=== PATIENT | male | born 1950 | race Caucasian/White ===

== ENCOUNTER 2022-03-05 06:55 | Outpatient (CLI) | payer MEDICARE, BC, SELFPAY | END 2022-03-05 06:56 | disposition home or self-care (01) | LOC: OP CLINIC 06:56 | PROVIDERS: PCP Family Medicine; Visit Provider Internal Medicine Gastroenterology | DX: Z12.11 Encounter for screening for malignant neoplasm of colon (principal); K63.5 Polyp of colon; Z86.010 Personal history of colon polyps | CPT/HCPCS: 45380; 45385; 88305; 99153; J2250; J3010 ==

== ENCOUNTER 2023-09-29 00:14 | Emergency (ER) | payer MEDICARE, BC, SELFPAY ==
[2023-09-29 00:24] VITALS: BP 122/82; PULSE 131; RESP 20; TEMP 36.5; BMI 29.7
--- NOTE | 2023-09-29 00:31 | XR_ITS ---
Final Report Patient: SAIMA QUINTERO Facility:?[facility] Patient ID:?[id number] Site Patient ID:?[id number]. Site :?[id number] Study:?XRay Chest AP PORTABLE-09/29/2023 12:58:58 AM Ordering Physician:Shanda Godfrey Final Report: INDICATION: Shortness of breath, recent pneumonectomy. TECHNIQUE: Chest 1 view. COMPARISON: 03/15/2021. FINDINGS: Interval opacification of essentially the entire right hemithorax with fluid, compatible with recent pneumonectomy changes. There is mild [id number] midline shift, likely secondary to ex vacuo phenomenon from volume loss. Right chest wall subcutaneous emphysema. Diffuse increased interstitial lung markings within the left lung. Evaluation of the right heart border is obscured by the fluid within the right hemithorax. The left cardiomediastinal silhouette is unremarkable. The osseous structures are unremarkable for age. IMPRESSION: 1. Near complete opacification of the right hemithorax with fluid and right chest wall subcutaneous emphysema, compatible with recent pneumonectomy postsurgical changes. 2. Diffuse increased interstitial lung markings within the left lung may represent pulmonary edema/volume overload, or an infectious/inflammatory process in the correct clinical setting. Dictated by Maynor Marie MD @ 09/29/2023 1:03:00 AM (Electronic Signature)
[2023-09-29 00:42] LABS: Basophils Absolute Auto 0.02 K/uL (0.00-0.30); Basophils Percent Auto 0.2 % (0.0-3.0); Eosinophils Absolute Auto 0.27 K/uL (0.00-0.50); Eosinophils Percent Auto 3.3 % (0.0-7.0); Hematocrit 35.2 % (37.0-53.0); Hemoglobin* 11.8 gm/dL (13.5-17.5); Immature Granulocytes Abs Auto 0.05 K/uL (0.00-0.30); Immature Granulocytes Pct Auto 0.6 %; Lymphocytes Percent Auto 19.1 % (20-44); Mean Corpuscular HGB Conc 34 gm/dL (32-36); Mean Corpuscular Hemoglobin 33 pg (26-34); Mean Corpuscular Volume 100 fL (80-100); Monocytes Percent Auto 15.9 % (0.0-11.0); Neutrophils Absolute Auto 4.95 K/uL (1.7-7.0); Neutrophils Percent Auto 60.9 % (42.0-72.0); Platelet Count* 299 K/uL (140-440); RDW Coefficient of Variation % 12.2 % (11.5-15.5); Red Blood Count 3.53 m/uL (4.30-5.90); White Blood Count* 8.13 K/uL (4.50-11.00)
[2023-09-29 00:44] LABS: Slide Review Reflex No
[2023-09-29] MEDS: 0.9 % SODIUM CHLORIDE 1000 ml 1,000 ML IV (00:52)
[2023-09-29] MEDS: METOPROLOL TARTRATE 1 MG/ML inj 5 MG IVP (00:53)
[2023-09-29 05:32] LABS: INR 0.95 (0.91-1.10); Prothrombin Time 13.3 Seconds
[2023-09-29 05:37] LABS: Anion Gap 10 mEq/L (7-15); Blood Urea Nitrogen* 20 mg/dL (7-30); Calcium* 9.3 mg/dL (8.4-10.6); Carbon Dioxide* 19 mmol/L (20-32); Chloride* 106 mmol/L (96-114); Creatinine* 0.8 mg/dL (0.5-1.5); Est. Creatinine Clearance* 75.46; Estimated Glomerular Filt Rate 94 ml/min; Glucose* 123 mg/dL (60-115); Potassium* 3.5 mmol/L (3.6-5.1); Sodium* 135 mmol/L (135-149); Troponin I* < 0.01 ng/mL (0.01-0.04)
--- NOTE | 2023-09-29 05:49 | ED.GENADULT ---
HPI - General Adult General Chief complaint: Shortness of Breath/Dyspnea Stated complaint: Short of Breath Time Seen by Provider: 09/29/23 00:31 History of Present Illness HPI narrative: Patient is a 73-year-old gentleman with history of paroxysmal atrial fibrillation but no symptoms for many years who presents with the abrupt onset of a tachycardia. He has had no chest pain shortness with orthopnea or PND. He does wear an Apple watch which alerted him to his change in heart rhythm. Patient is status post recent right-sided pneumonectomy secondary to lung cancer. Upon arrival patient has atrial fibrillation with rate of 131. No other complaints patient is otherwise doing reasonably well considering his past status post thoracotomy status. Related Data Home Medications Medication Instructions Recorded Confirmed atorvastatin 40 mg tablet 40 mg PO DAILY 09/29/23 09/29/23 diltiazem HCl 240 mg 240 mg PO DAILY 09/29/23 09/29/23 capsule,extended release 24 hr flecainide 100 mg tablet 100 mg PO Q12H 09/29/23 09/29/23 fluoxetine 20 mg capsule 20 mg PO QAM 09/29/23 09/29/23 hydromorphone 2 mg tablet PO 09/29/23 ibuprofen 600 mg tablet 600 mg PO Q6H PRN 09/29/23 09/29/23 losartan 50 mg tablet 25 mg PO DAILY 09/29/23 09/29/23 Allergies Allergy/AdvReac Type Severity Reaction Status Date / Time No Known Drug Allergies Allergy Verified 09/29/23 00:22 Review of Systems Status of ROS: Reports: 10 or more systems reviewed and unremarkable except as noted in History and below [facility] Medical History Hypertension ?I10 - Essential (primary) hypertension (ICD-10) Paroxysmal atrial fibrillation ?I48.0 - Paroxysmal atrial fibrillation (ICD-10) Lung cancer ?C34.90 - Malignant neoplasm of unspecified part of unspecified bronchus or lung (ICD-10) Exam Narrative: Exam Narrative: EXAM GENERAL: Patient appears comfortable and well. EYES: No scleral icterus. ENT: Tympanic membranes and oropharynx normal. THYROID: no thyroid nodules or thyromegaly. LYMPH: No supraclavicular or cervical lymphadenopathy. SKIN: Visible skin seen during exam normal or with benign process only. EXT: No dependent lower extremity pedal edema. HEART: Irregular regular and tachycardic. LUNGS: Clear to auscultation on the left with absence of breath sounds on the right. ABD: Soft, non tender, non distended. PSYCH: Good eye contact, speech is not pressured. Const: Vital Signs, click to edit/add: Vital Signs - 24 hr 09/29/23 00:24 Temperature 97.7 F Pulse Rate [Pulse Oximeter] 131 H Respiratory Rate 20 Blood Pressure [Ri ght Upper Arm] 122/82 Oxygen Delivery Me thod Room Air Course Course ED Course: Patient seen examined. Case discussed with Cardiology at [facility]. Laboratory studies are reassuring. After explaining the risks and benefits of procedure I did sedate him with Versed and fentanyl after which I did cardiovert him with 100 joules synchronized cardioversion. The 1st shock return him sinus rhythm which he then converted back to atrial fibrillation with rate of 120. A 2nd 100 joule shock converted him to sinus rhythm which she stayed in during the duration of his time in the emergency room. Based on my discussion with patient and with Cardiology we did place him on a apixaban 5 mg b.i.d. and recommended follow-up with his primary physician this coming week. Vital Signs Vital signs: Initial Vital Signs Temperature 97.7 F 09/29/23 00:24 Temperature Source Temporal Artery Scan 09/29/23 00:24 Pulse Rate 131 H 09/29/23 00:24 Pulse Strength 3+ Normal 09/29/23 00:24 Respiratory Rate 20 09/29/23 00:24 Blood Pressure 122/82 09/29/23 00:24 Blood Pressure Mean 95 09/29/23 00:24 Oxygen Delivery Method Room Air 09/29/23 00:24 Vital Signs Temperature 97.7 F 09/29/23 00:24 Pulse Rate 131 H 09/29/23 00:24 Respiratory Rate 20 09/29/23 00:24 Blood Pressure 122/82 09/29/23 00:24 Oxygen Delivery Method Room Air 09/29/23 00:24 Temperature 97.7 F 09/29/23 00:24 Pulse Rate 131 H 09/29/23 00:24 Respiratory Rate 20 09/29/23 00:24 Blood Pressure 122/82 09/29/23 00:24 Oxygen Delivery Method Room Air 09/29/23 00:24 Medications Administered Medications: Discontinued Medications Generic Name Dose Route Start Last Admin Trade Name Freq PRN Reason Stop Dose Admin Sodium Chloride 1,000 mls @ 1,000 mls/hr 09/29/23 00:32 09/29/23 00:52 0.9 % Sodium Chloride 1000 Ml IV 09/29/23 01:31 1,000 mls/hr .Q1H MICHAEL Administration Metoprolol Tartrate 5 mg 09/29/23 00:32 09/29/23 00:53 Metoprolol Tartrate 1 Mg/Ml Inj IVP 09/29/23 00:33 5 mg ONCE ONE Administration Medical Decision Making MDM Narrative Medical decision making narrative: As above Lab Data Labs: Lab Results 09/29/23 Range/Units 00:35 WBC 8.13 (4.50-11.00) K/uL RBC 3.53 L (4.30-5.90) m/uL Hgb 11.8 L (13.5-17.5) gm/dL Hct 35.2 L (37.0-53.0) % MCV 100 (80-100) fL MCH 33 (26-34) pg MCHC 34 (32-36) gm/dL RDW Coeff of Jose 12.2 (11.5-15.5) % Plt Count 299 (140-440) K/uL Neut % (Auto) 60.9 (42.0-72.0) % Lymph % (Auto) 19.1 L (20-44) % [place] % (Auto) 15.9 H (0.0-11.0) % Eos % (Auto) 3.3 (0.0-7.0) % Baso % (Auto) 0.2 (0.0-3.0) % Neut # (Auto) 4.95 (1.7-7.0) K/uL Lymph # (Auto) 1.60 (0.90-2.90) K/uL [place] # (Auto) 1.30 H (0.00-0.90) K/UL Eos # (Auto) 0.27 (0.00-0.50) K/uL Baso # (Auto) 0.02 (0.00-0.30) K/uL Abs Immat Gran (auto) 0.05 (0.00-0.30) K/uL Imm/Tot Granulo (auto) 0.6 % INR 0.95 (0.91-1.10) Sodium 135 (135-149) mmol/L Potassium 3.5 L (3.6-5.1) mmol/L Chloride 106 (96-114) mmol/L Carbon Dioxide 19 L (20-32) mmol/L Anion Gap 10 (7-15) mEq/L BUN 20 (7-30) mg/dL Creatinine 0.8 (0.5-1.5) mg/dL Estimated Creat Clear 75.46 Estimated GFR 94 ml/min Glucose 123 H (60-115) mg/dL Calcium 9.3 (8.4-10.6) mg/dL Troponin I < 0.01 L (0.01-0.04) ng/mL Discharge Plan Discharge Clinical Impression: Atrial fibrillation with rapid ventricular response Patient Disposition: Home, Self-Care Condition: Stable Instructions: A-fib (Atrial Fibrillation) (ED) Activity Level: No Restrictions Discharge Diet: Regular Prescriptions: No Action losartan 50 mg tablet 25 mg PO DAILY atorvastatin 40 mg tablet 40 mg PO DAILY diltiazem HCl 240 mg capsule,extended release 24hr 240 mg PO DAILY hydromorphone 2 mg tablet PO flecainide 100 mg tablet 100 mg PO Q12H ibuprofen 600 mg tablet 600 mg PO Q6H PRN fluoxetine 20 mg capsule 20 mg PO QAM Follow Up/Referrals: Elijah Tamez MD [Primary Care Provider] - Stand Alone Forms: [facility] Info Instructions
== END 2023-09-29 02:30 | disposition home or self-care (01) ==
PROVIDERS: Emergency Provider Internal Medicine; PCP Family Medicine
DX: I48.91 Unspecified atrial fibrillation (principal)
CPT/HCPCS: 36415; 71045; 80048; 84484; 85025; 85610; 92960; 99284; 99285; J7030

== ENCOUNTER 2023-09-30 17:42 | Emergency (ER) | payer MEDICARE, BC, SELFPAY ==
[2023-09-30] VITALS (34 sets, daily range): BP systolic 86–133; BP diastolic 53–99; PULSE 103–150; RESP 26; TEMP 36.3–37.6; O2SAT 84–93
--- NOTE | 2023-09-30 18:01 | ED_ITS ---
HPI - Arrhythmia/Palpitations General Time Seen by Provider: 18:01 Date Seen: 09/30/23 Chief Complaint: Arrhythmia/Palpitations Stated Complaint: Afib Time Seen by Provider: 09/30/23 18:01 Source: patient, RN notes reviewed and old records reviewed Mode of arrival: ambulatory Limitations: no limitations History of Present Illness HPI narrative: 73-year-old male with history of paroxysmal atrial fibrillation presents today with fast heart rate. Review of chart shows patient was seen yesterday with this same issue, underwent electrical cardioversion with successful return to sinus rhythm at that time. Patient was started on Eliquis last night, currently takes Cardizem 240 mg daily. Patient underwent a right pneumonectomy last week for lung cancer, since then has been in out of atrial fibrillation which previously was quite well controlled, current episode started earlier today. No chest pain and does not noticed more shortness of breath than usual with his atrial fibrillation. Denies lower extremity swelling. Related Data Home Medications Medication Instructions Recorded Confirmed atorvastatin 40 mg tablet 40 mg PO DAILY 09/29/23 09/29/23 diltiazem HCl 240 mg 240 mg PO DAILY 09/29/23 09/29/23 capsule,extended release 24 hr flecainide 100 mg tablet 100 mg PO Q12H 09/29/23 09/29/23 fluoxetine 20 mg capsule 20 mg PO QAM 09/29/23 09/29/23 hydromorphone 2 mg tablet PO 09/29/23 ibuprofen 600 mg tablet 600 mg PO Q6H PRN 09/29/23 09/29/23 losartan 50 mg tablet 25 mg PO DAILY 09/29/23 09/29/23 Previous Rx's Medication Instructions Recorded apixaban 5 mg tablet 5 mg PO BID #60 tabs 09/29/23 Allergies Allergy/AdvReac Type Severity Reaction Status Date / Time No Known Drug Allergies Allergy Verified 09/29/23 00:22 [facility] Medical History Hypertension ?I10 - Essential (primary) hypertension (ICD-10) Paroxysmal atrial fibrillation ?I48.0 - Paroxysmal atrial fibrillation (ICD-10) Lung cancer ?C34.90 - Malignant neoplasm of unspecified part of unspecified bronchus or lung (ICD-10) Social History Smoking Status: Unknown if ever smoked Exam Narrative: Exam Narrative: General: Well-developed and well-nourished, no acute distress Head: Atraumatic and normocephalic Eyes: Pupils are equal reactive, extraocular motions intact, conjunctiva clear ENT: External nose and ears are normal, posterior pharynx without erythema or exudate Neck: No midline cervical tenderness, full spontaneous range of motion the neck, trachea midline, no adenopathy Heart: Tachycardic, irregular Lungs: Diminished on the right Abdomen: Soft, nontender, nondistended with active bowel sounds Musculoskeletal: No tenderness, deformity, or edema Neurologic: Awake, alert, and oriented x3, no gross focal neurologic deficits, cranial nerves intact as tested Psych: Mood and affect are appropriate Skin: No rashes Const: Vital Signs, click to edit/add: Vital Signs - 24 hr 09/30/23 17:53 09/30/23 18:00 09/30/23 18:12 Temperature 97.4 F L Pulse Rate 109 H Pulse Rate [Pulse Oximeter] 150 H Respiratory Rate 26 H Blood Pressure 127/70 Blood Pressure [Le ft Upper Arm] 86/53 L Pulse Oximetry 84 L 88 93 Oxygen Delivery Me thod Room Air Nasal Cannula Oxygen Flow Rate 3 09/30/23 18:13 09/30/23 18:15 09/30/23 18:16 Temperature Pulse Rate 133 H 113 H 124 H Pulse Rate [Pulse Oximeter] Respiratory Rate Blood Pressure 102/72 Blood Pressure [Le ft Upper Arm] Pulse Oximetry 91 91 89 Oxygen Delivery Me thod Oxygen Flow Rate 09/30/23 18:17 09/30/23 18:21 09/30/23 18:27 Temperature Pulse Rate 103 H 118 H 123 H Pulse Rate [Pulse Oximeter] Respiratory Rate Blood Pressure 117/91 H 129/64 Blood Pressure [Le ft Upper Arm] Pulse Oximetry 89 90 90 Oxygen Delivery Me thod Nasal Cannula Nasal Cannula Nasal Cannula Oxygen Flow Rate 3 3 2 09/30/23 18:28 09/30/23 18:30 09/30/23 18:31 Temperature Pulse Rate 126 H 112 H 114 H Pulse Rate [Pulse Oximeter] Respiratory Rate Blood Pressure 133/99 H Blood Pressure [Le ft Upper Arm] Pulse Oximetry 90 91 90 Oxygen Delivery Me thod Nasal Cannula Nasal Cannula Nasal Cannula Oxygen Flow Rate 2 2 2 09/30/23 18:36 09/30/23 18:43 09/30/23 18:45 Temperature Pulse Rate 133 H 131 H 138 H Pulse Rate [Pulse Oximeter] Respiratory Rate Blood Pressure 128/67 114/92 H Blood Pressure [Le ft Upper Arm] Pulse Oximetry 91 91 90 Oxygen Delivery Me thod Nasal Cannula Nasal Cannula Nasal Cannula Oxygen Flow Rate 2 2 2 09/30/23 18:46 09/30/23 18:51 09/30/23 18:52 Temperature Pulse Rate 120 H 119 H 120 H Pulse Rate [Pulse Oximeter] Respiratory Rate Blood Pressure 100/82 112/69 Blood Pressure [Le ft Upper Arm] Pulse Oximetry 89 90 90 Oxygen Delivery Me thod Nasal Cannula Nasal Cannula Nasal Cannula Oxygen Flow Rate 2 2 2 09/30/23 18:56 09/30/23 19:00 09/30/23 19:01 Temperature Pulse Rate 104 H 121 H 126 H Pulse Rate [Pulse Oximeter] Respiratory Rate Blood Pressure 87/66 L 133/87 Blood Pressure [Le ft Upper Arm] Pulse Oximetry 90 90 90 Oxygen Delivery Me thod Nasal Cannula Nasal Cannula Nasal Cannula Oxygen Flow Rate 2 2 2 09/30/23 19:07 09/30/23 19:11 09/30/23 19:15 Temperature Pulse Rate 111 H 120 H 136 H Pulse Rate [Pulse Oximeter] Respiratory Rate Blood Pressure 126/63 117/70 Blood Pressure [Le ft Upper Arm] Pulse Oximetry 90 90 89 Oxygen Delivery Me thod Nasal Cannula Nasal Cannula Nasal Cannula Oxygen Flow Rate 2 2 2 09/30/23 19:16 Temperature Pulse Rate 126 H Pulse Rate [Pulse Oximeter] Respiratory Rate Blood Pressure 116/87 Blood Pressure [Le ft Upper Arm] Pulse Oximetry 91 Oxygen Delivery Me thod Nasal Cannula Oxygen Flow Rate 2 Course Course ED Course: Patient seen examined prior records are reviewed. Patient presents today with palpitations and is found to be in atrial fibrillation with rapid ventricular response. Mild hypotension on initial arrival. Patient is on diltiazem, also on flecainide. Patient has a history of atrial fibrillation but is doing well until lung resection done last week and since then has had multiple episodes. Patient was electrically cardioverted in the emergency department yesterday. Initial pressure was low but low but the time of my examination systolic 146. Labs ordered, reviewed prior chest x-ray which showed findings of fluid in the right hemithorax. Labs ordered along with Cardizem drip. Reevaluation(s) Time of Reevaluation #1: 18:38 Reevaluation #1: No improvement of heart rate after diltiazem 10 mg IV, repeat doses ordered. Chest x-ray independently interpreted by me demonstrates white out of the right lung with question of pneumothorax on that side as well, essentially unchanged from prior. Labs ordered and independently interpreted by me with white blood cell count 13.1, increased from 8.3 yesterday, troponin 0.02 which is fairly reassuring setting of cardioversion yesterday. Contacted [facility] transfer center to discuss further treatment with patient's thoracic surgeon. Time of Reevaluation #2: 18:47 Reevaluation #2: Labs independently interpreted by me with normal basic metabolic panel, normal magnesium. BNP elevated from baseline at 1510. Time of Reevaluation #3: 19:11 Reevaluation #3: Care discussed with Dr. Roper, thoracic surgery at [place]. Due to pulmonary infiltrates on left along with recurrent atrial fibrillation with RVR, recommends transfer to [place] urgently for further evaluation and treatment. Patient did have some lower oxygen saturations in the ED. given infiltrates on x-ray as well as leukocytosis and slightly low oxygen saturation, patient will be started on Zosyn and vancomycin for possible hospital-acquired pneumonia although findings on x-ray could be secondary to pulmonary edema from a uncontrolled atrial fibrillation as well. Patient accepted to transfer to [place] by Dr. Mehta, emergency department. Updated patient's spouse with findings and plan. Vital Signs Vital signs: Initial Vital Signs Temperature 97.4 F L 09/30/23 17:53 Temperature Source Temporal Artery Scan 09/30/23 17:53 Pulse Rate 150 H 09/30/23 17:53 Pulse Rhythm Irregular 09/30/23 17:53 Respiratory Rate 26 H 09/30/23 17:53 Blood Pressure 86/53 L 09/30/23 17:53 Blood Pressure Mean 64 L 09/30/23 17:53 Blood Pressure Position Sitting 09/30/23 17:53 Pulse Oximetry 84 L 09/30/23 17:53 Oxygen Delivery Method Room Air 09/30/23 17:53 Vital Signs Temperature 97.4 F L 09/30/23 17:53 Pulse Rate 150 H 09/30/23 17:53 Respiratory Rate 26 H 09/30/23 17:53 Blood Pressure 86/53 L 09/30/23 17:53 Pulse Oximetry 84 L 09/30/23 17:53 Oxygen Delivery Method Room Air 09/30/23 17:53 Temperature 97.4 F L 09/30/23 17:53 Pulse Rate 126 H 09/30/23 19:16 Respiratory Rate 26 H 09/30/23 17:53 Blood Pressure 116/87 09/30/23 19:16 Pulse Oximetry 91 09/30/23 19:16 Oxygen Delivery Method Nasal Cannula 09/30/23 19:16 Oxygen Flow Rate 2 09/30/23 19:16 Medications Administered Medications: Generic Name Dose Route Start Last Admin Trade Name Freq PRN Reason Stop Dose Admin Diltiazem HCl 125 mg/ Sodium 125 mls @ 5 mls/hr 09/30/23 18:36 09/30/23 19:09 Chloride IVPB 5 mls/hr .TITRATE MICHAEL Administration Protocol Discontinued Medications Generic Name Dose Route Start Last Admin Trade Name Freq PRN Reason Stop Dose Admin Diltiazem HCl 10 mg 09/30/23 18:12 09/30/23 18:21 Diltiazem 5 Mg/Ml Inj IVP 09/30/23 18:13 10 mg ONCE ONE Administration Diltiazem HCl 10 mg 09/30/23 18:37 09/30/23 18:41 Diltiazem 5 Mg/Ml Inj IVP 09/30/23 18:38 10 mg ONCE ONE Administration MDM - Arrhythmia/Palpitations Lab Data Labs: Lab Results 09/30/23 09/30/23 Range/Units 18:00 18:01 WBC 13.13 H (4.50-11.00) K/uL RBC 4.20 L (4.30-5.90) m/uL Hgb 13.7 (13.5-17.5) gm/dL Hct 41.5 (37.0-53.0) % MCV 99 (80-100) fL MCH 33 (26-34) pg MCHC 33 (32-36) gm/dL RDW Coeff of Jose 12.0 (11.5-15.5) % Plt Count 421 (140-440) K/uL Neut % (Auto) 71.0 (42.0-72.0) % Lymph % (Auto) 12.6 L (20-44) % [place] % (Auto) 13.6 H (0.0-11.0) % Eos % (Auto) 2.4 (0.0-7.0) % Baso % (Auto) 0.2 (0.0-3.0) % Neut # (Auto) 9.30 H (1.7-7.0) K/uL Lymph # (Auto) 1.70 (0.90-2.90) K/uL [place] # (Auto) 1.80 H (0.00-0.90) K/UL Eos # (Auto) 0.30 (0.00-0.50) K/uL Baso # (Auto) 0.00 (0.00-0.30) K/uL Abs Immat Gran (auto) 0.00 (0.00-0.30) K/uL Imm/Tot Granulo (auto) 0.2 % Sodium 135 (135-149) mmol/L Potassium 4.0 (3.6-5.1) mmol/L Chloride 101 (96-114) mmol/L Carbon Dioxide 20 (20-32) mmol/L Anion Gap 14 (7-15) mEq/L BUN 17 (7-30) mg/dL Creatinine 0.9 (0.5-1.5) mg/dL Estimated GFR 91 ml/min Glucose 110 (60-115) mg/dL Calcium 9.9 (8.4-10.6) mg/dL Magnesium 1.8 (1.5-2.6) mg/dL NT-Pro-B Natriuret Pep 1510 pg/mL POC Troponin I 0.02 (0.01-0.04) ng/ml ECG Data Attestation: I personally reviewed and interpreted this ECG as follows: ECG interpretation date: 09/30/23 ECG interpretation time: 18:06 Prior ECG tracings: not available for review Interpretation: Atrial fibrillation with rapid ventricular response rate 153, QTC 504, normal axis. No prior for comparison. Critical Care Time Critical Care Time Critical Care Time: Yes (Atrial fibrillation with RVR, Cardizem drip, transfer) Attestation: The patient required my highest level preparedness to intervene emergently and I personally spent this critical care time directly and personally managing the patient. This critical care time included: Obtaining a history; Examining the patient; Pulse oximetry; Ordering and reviewing of studies; Arranging urgent treatment with development of a management plan; Evaluation of patients response to treatment; Frequent reassessment discussions with other providers. This critical care time was performed to assess and manage the high probability of imminent life-threatening deterioration that could result in multiorgan failure. It was exclusive of separate billable procedures and treating other patients and teaching time. Total Critical Care Time in Minutes: 90 Discharge Plan Discharge Clinical Impression: Left pulmonary infiltrate on CXR, S/P pneumonectomy, Atrial fibrillation with rapid ventricular response Patient Disposition: Xfer Other Condition: Stable Prescriptions: No Action losartan 50 mg tablet 25 mg PO DAILY atorvastatin 40 mg tablet 40 mg PO DAILY diltiazem HCl 240 mg capsule,extended release 24hr 240 mg PO DAILY hydromorphone 2 mg tablet PO flecainide 100 mg tablet 100 mg PO Q12H ibuprofen 600 mg tablet 600 mg PO Q6H PRN fluoxetine 20 mg capsule 20 mg PO QAM apixaban 5 mg tablet 5 mg PO BID Qty: 60 2RF Stand Alone Forms: [employer] Info Instructions
--- NOTE | 2023-09-30 18:12 | XR_ITS ---
Final Report Patient: SAIMA QUINTERO Facility:?[facility] Patient ID:?[id number] Site Patient ID:?[id number]. Site :?[id number] Study:?XRay Chest PORTABLE-09/30/2023 6:28:00 PM Ordering Physician:SUJATHA Final Report: INDICATION: Pneumonectomy. TECHNIQUE: Chest 1 view(s) COMPARISON: Chest radiograph dated 09/29/2023. FINDINGS/IMPRESSION: Stable opacification of the right hemithorax status post right pneumonectomy. Compensatory hyperinflation of the left lung, not significantly changed. Persistent patchy interstitial opacities in the left lung, are also not significantly changed. Cardiomediastinal silhouette and pulmonary vasculature are partially obscured, but appear stable. Slightly decreased degree of subcutaneous emphysema in the right chest wall. Dictated by Patti Varela MD @ 09/30/2023 6:51:29 PM (Electronic Signature)
[2023-09-30 18:14] LABS: Troponin, Point-of-Care* 0.02 ng/ml (0.01-0.04)
[2023-09-30] MEDS: 0.9 % SODIUM CHLORIDE 500 ML 500 ML IV (18:15)
[2023-09-30 18:21] LABS: Basophils Percent Auto 0.2 % (0.0-3.0); Eosinophils Percent Auto 2.4 % (0.0-7.0); Hematocrit 41.5 % (37.0-53.0); Hemoglobin* 13.7 gm/dL (13.5-17.5); Immature Granulocytes Pct Auto 0.2 %; Lymphocytes Percent Auto 12.6 % (20-44); Mean Corpuscular HGB Conc 33 gm/dL (32-36); Mean Corpuscular Hemoglobin 33 pg (26-34); Mean Corpuscular Volume 99 fL (80-100); Monocytes Percent Auto 13.6 % (0.0-11.0); Platelet Count* 421 K/uL (140-440); White Blood Count* 13.13 K/uL (4.50-11.00)
[2023-09-30] MEDS: dilTIAZem 5 MG/ML inj 10 MG IVP ×2 (18:21→18:41)
[2023-09-30 18:22] LABS: Slide Review Reflex No
[2023-09-30 18:34] LABS: Chloride* 101 mmol/L (96-114); Sodium* 135 mmol/L (135-149)
[2023-09-30 18:37] LABS: Anion Gap 14 mEq/L (7-15); Blood Urea Nitrogen* 17 mg/dL (7-30); Carbon Dioxide* 20 mmol/L (20-32); Creatinine* 0.9 mg/dL (0.5-1.5); Estimated Glomerular Filt Rate 91 ml/min
[2023-09-30 18:38] LABS: Calcium* 9.9 mg/dL (8.4-10.6); Glucose* 110 mg/dL (60-115); Magnesium* 1.8 mg/dL (1.5-2.6)
[2023-09-30 18:50] LABS: NT Pro B Type NatriureticPept* 1510 pg/mL
[2023-09-30] MEDS: dilTIAZem HCL 125 MG in 0.9 % SODIUM CHLORIDE 100 ml 100 ML IVPB (19:09)
[2023-09-30] MEDS: PIPERACILLIN/TAZOBACTAM 3.375 GM in 0.9 % SODIUM CHLORIDE Mini-bag 100 ML IVPB (19:27)
[2023-09-30] MEDS: HYDROmorphone 0.5 mg/0.5 ml inj IVP (19:35)
== END 2023-09-30 20:19 | disposition other institution (70) ==
PROVIDERS: Emergency Provider Family Medicine; PCP Family Medicine
DX: R91.8 Other nonspecific abnormal finding of lung field (principal); I48.91 Unspecified atrial fibrillation; Z96.9 Presence of functional implant, unspecified
CPT/HCPCS: 36415; 71045; 80048; 83735; 83880; 84484; 85025; 93005; 96365; 96368; 96375; 99285; 99291; 99292; J1170; J2543; J3490; J7030

== ENCOUNTER 2023-09-30 19:51 | Outpatient (CLI) | payer MEDICARE, BC, SELFPAY | END 2023-09-30 19:52 | disposition home or self-care (01) | LOC: AMB 10-10 02:02 | PROVIDERS: PCP Family Medicine; Visit Provider Family Medicine | DX: I48.91 Unspecified atrial fibrillation (principal); R91.8 Other nonspecific abnormal finding of lung field; Z90.2 Acquired absence of lung [part of] | CPT/HCPCS: A0425; A0427 ==

== ENCOUNTER 2023-11-01 13:57 | Outpatient (CLI) | payer MEDICARE, BC, SELFPAY | END 2023-11-01 13:58 | disposition home or self-care (01) | LOC: AMB 11-07 06:32 | PROVIDERS: PCP Family Medicine; Visit Provider Student in an Organized Health Care Education/Training Program | DX: I95.9 Hypotension, unspecified (principal) | CPT/HCPCS: A0425; A0427 ==

== ENCOUNTER 2023-11-30 13:05 | Outpatient (CLI) | payer MEDICARE, BC, SELFPAY | END 2023-11-30 13:06 | disposition home or self-care (01) | LOC: AMB 12-04 13:50 | PROVIDERS: PCP Family Medicine; Visit Provider Family Medicine | DX: R53.1 Weakness (principal) | CPT/HCPCS: A0425; A0427 ==

== ENCOUNTER 2023-12-06 13:08 | Outpatient (CLI) | payer MEDICARE, BC, SELFPAY | END 2023-12-06 13:09 | disposition home or self-care (01) | LOC: AMB 12-08 05:14 | PROVIDERS: PCP Family Medicine; Visit Provider Family Medicine | DX: R53.1 Weakness (principal); R42 Dizziness and giddiness; M54.9 Dorsalgia, unspecified | CPT/HCPCS: A0425; A0429 ==

== ENCOUNTER 2023-12-28 04:00 | Outpatient (CLI) | payer MEDICARE, BC, SELFPAY | END 2023-12-28 04:01 | disposition home or self-care (01) | LOC: AMB 01-12 23:43 | PROVIDERS: PCP Family Medicine; Visit Provider Student in an Organized Health Care Education/Training Program | DX: R06.09 Other forms of dyspnea (principal); R53.1 Weakness | CPT/HCPCS: A0425; A0427 ==

== ENCOUNTER 2024-03-31 08:35 | Outpatient (CLI) | payer MEDICARE, BC, SELFPAY | END 2024-03-31 08:36 | disposition home or self-care (01) | LOC: AMB 04-04 03:17 | PROVIDERS: PCP Family Medicine; Visit Provider Student in an Organized Health Care Education/Training Program | DX: R53.1 Weakness (principal); R42 Dizziness and giddiness | CPT/HCPCS: A0425; A0427 ==

== ENCOUNTER 2024-04-02 11:07 | Outpatient (CLI) | payer MEDICARE, BC, SELFPAY | END 2024-04-02 11:08 | disposition home or self-care (01) | LOC: AMB 04-04 03:58 | PROVIDERS: PCP Family Medicine; Visit Provider Emergency Medicine | DX: R11.2 Nausea with vomiting, unspecified (principal) | CPT/HCPCS: A0998 ==

== ENCOUNTER 2024-04-02 14:34 | Outpatient (CLI) | payer MEDICARE, BC, SELFPAY | END 2024-04-02 14:35 | disposition home or self-care (01) | LOC: AMB 04-04 04:02 | PROVIDERS: PCP Family Medicine; Visit Provider Emergency Medicine | DX: R06.09 Other forms of dyspnea (principal); R53.1 Weakness | CPT/HCPCS: A0425; A0427; A0998 ==

== ENCOUNTER 2024-04-10 10:10 | Outpatient (CLI) | payer MEDICARE, BC, SELFPAY | END 2024-04-10 10:11 | disposition home or self-care (01) | LOC: AMB 04-14 01:14 | PROVIDERS: PCP Family Medicine; Visit Provider Family Medicine | DX: R53.1 Weakness (principal) | CPT/HCPCS: A0425; A0427 ==